=== PATIENT | female | born 1980 | race Asian ===

== ENCOUNTER 2016-05-21 14:15 | Emergency (ER) | payer OTHER | END 2016-05-21 15:27 | disposition home or self-care (01) | DX: R06.00 Dyspnea, unspecified (principal); M54.6 Pain in thoracic spine; Z97.5 Presence of (intrauterine) contraceptive device ==

== ENCOUNTER 2017-11-26 14:25 | Emergency (ER) | payer OTHER ==
[2017-11-26 14:51] VITALS: BP 116/70
[2017-11-26 15:28] LABS: BASOPHILS % (AUTO) 0.7 %; EOSINOPHILS % (AUTO) 0.9 %; LYMPHOCYTES # (AUTO) 1.9 10^3/uL (1.5-3.5); LYMPHOCYTES % (AUTO) 33.6 %; MEAN CORPUSCULAR HEMOGLOBIN 31.6 pg (27.0-31.0); MEAN CORPUSCULAR HGB CONC 34.7 g/dL (32.0-36.0); MEAN CORPUSCULAR VOLUME 91.1 fL (81.0-99.0); MEAN PLATELET VOLUME 7.2 fL (7.9-10.8); MONOCYTES # (AUTO) 0.2 10^3/uL (0.0-1.0); MONOCYTES % (AUTO) 4.3 %; NEUTROPHILS # (AUTO) 3.4 10^3/uL (1.5-6.6); NEUTROPHILS % (AUTO) 60.5 %; PLT - PLATELET COUNT 209 10^3/uL (130-450); RED BLOOD COUNT 4.42 10^6/uL (4.20-5.40); RED CELL DISTRIBUTION WIDTH 12.5 % (12.0-15.0); WHITE BLOOD COUNT 5.7 x10^3/uL (4.8-10.8)
--- NOTE | 2017-11-26 15:40 | ED Physician Documentation ---
History of Present Illness - Stated complaint Stated Complaint: MHE/SI - Chief complaint Chief Complaint: MHE - Additonal information Additional information: hx from pt 37 f [place] dependent to ED with suicidal ideations stress = relationship with plan would be to hang herself or a MVA has not tried to harm herself yet no HI no hallucinations recent head cold clearing up Review of Systems Constitutional: denies: Fever, Chills Nose: reports: Congestion Cardiac: denies: Chest pain / pressure Respiratory: denies: Dyspnea, Cough GI: denies: Abdominal Pain Psychiatric: reports: Depressed, Suicidal. denies: Homicidal, Hallucinations Endocrine: denies: Easy bruising / bleeding Immunocompromised: denies: Immunocompromised PD PAST MEDICAL HISTORY - Past Surgical History Past Surgical History: Yes HEENT: Tonsil/Adenoidectomy - Present Medications Home Medications: Ambulatory Orders Medication Instructions Recorded Confirmed Control Device Implanted 05/21/16 - Allergies Allergies/Adverse Reactions: Allergies Allergy/AdvReac Type Severity Reaction Status Date / Time Penicillins Allergy Itching Verified 05/21/16 14:21 lidocaine AdvReac Anxiety Verified 11/26/17 14:52 - Social History Does the pt smoke?: No Smoking Status: Never smoker Does the pt drink ETOH?: No Does the pt have substance abuse?: No PD ED PE NORMAL - Vitals Vital signs reviewed: Yes - General General: Alert and oriented X 3 - Neck Neck: Supple, no meningeal sign - Cardiac Cardiac: RRR - Respiratory Respiratory: No respiratory distress, Clear bilaterally - Abdomen Abdomen: Soft, Non tender - Neuro Neuro: Alert and oriented X 3 - Psych Psych: Other (sad affect) Results - Vitals Vitals: Vital Signs - 24 hr 11/26/17 14:45 Temperature 37.0 C Heart Rate 75 Respiratory 15 Rate Blood Pressure 116/70 O2 Saturation 100 Oxygen O2 Source Room air - Labs Labs: Laboratory Tests 11/26/17 11/26/17 15:22 15:22 WBC 5.7 RBC 4.42 Hgb 14.0 Hct 40.3 MCV 91.1 MCH 31.6 H MCHC 34.7 RDW 12.5 Plt Count 209 MPV 7.2 L Neut # (Auto) 3.4 Lymph # (Auto) 1.9 Barron # (Auto) 0.2 Eos # (Auto) 0.0 Baso # (Auto) 0.0 Absolute Nucleated RBC 0.00 Nucleated RBC % 0.0 Sodium 137 Potassium 3.6 Chloride 104 Carbon Dioxide 25 Anion Gap 8.0 BUN 15 Creatinine 0.8 Estimated GFR (MDRD) 80 L Glucose 88 Calcium 9.2 Total Bilirubin 0.7 AST 23 ALT 22 Alkaline Phosphatase 37 L Total Protein 7.9 Albumin 3.9 Globulin 4.0 Albumin/Globulin Ratio 1.0 Lipase 37 Salicylates < 6.0 Acetaminophen < 10 L Ethyl Alcohol < 5.0 PD MEDICAL DECISION MAKING - ED course ED course: seen by SW and not felt to be an iminent danger to self or others and felt safe to dc home with outpt [facility] fup - see SW notes - Sepsis Event Vital Signs: Vital Signs - 24 hr 11/26/17 14:45 Temperature 37.0 C Heart Rate 75 Respiratory 15 Rate Blood Pressure 116/70 O2 Saturation 100 Oxygen O2 Source Room air Departure - Departure Disposition: 01 Home, Self Care Clinical Impression: Suicidal ideation Condition: Good Instructions: ED Depression Comments: Please follow up with [facility] as planned Can always call the crisis line or come back to the ER if worse in any way
[2017-11-26 15:44] LABS: ALBUMIN 3.9 g/dL (3.2-5.5); ALKALINE PHOSPHATASE 37 IU/L (42-121); ALT ALANINE AMINOTRANSFERASE 22 IU/L (10-60); AST ASPARTATE AMINOTRANSFERASE 23 IU/L (10-42); BILIRUBIN,TOTAL 0.7 mg/dL (0.2-1.0); BUN - BLOOD UREA NITROGEN 15 mg/dL (6-20); CALCIUM 9.2 mg/dL (8.5-10.3); CARBON DIOXIDE - CO2 25 mmol/L (21-32); CHLORIDE 104 mmol/L (101-111); CREATININE 0.8 mg/dL (0.4-1.0); GFR - MDRD 80 (>89); GLUCOSE 88 mg/dL (70-100); LIPASE 37 U/L (22-51); SALICYLATE < 6.0 mg/dL; SODIUM 137 mmol/L (135-145); TOTAL PROTEIN 7.9 g/dL (6.7-8.2)
[2017-11-26 15:45] LABS: ACETAMINOPHEN < 10 ug/mL (10-30)
== END 2017-11-26 17:38 | disposition home or self-care (01) ==
LOC: ED 14:25
DX: R45.851 Suicidal ideations (principal)
CPT/HCPCS: 36415; 80053; 80307; 80320; 80329; 83690; 85025; 99282; 99283